=== PATIENT | female | born 1965 | race Caucasian/White ===

== ENCOUNTER 2018-08-25 06:18 | Day surgery (SDC) | payer OTHER ==
[~2018-08-25] VITALS: Ht 154.9 cm; Wt 53.4 kg
[~2018-08-25 06:18] MED LIST: MULT1CAP20 PO
[2018-08-25 06:50] VITALS: Ht 154.9 cm; Wt 53.4 kg
[2018-08-25] MEDS ORDERED: GABA100C14 PO (06:56)
[2018-08-25] MEDS ORDERED: NAPR500T8 PO (06:56)
[2018-08-25 08:05] VITALS: BP 108/59; PULSE 68; RESP 18
[2018-08-25] MEDS ORDERED: MIDAZOLAM 1 MG/ML 2 ML INJ ONE ×2 (08:21)
[2018-08-25] MEDS ORDERED: FENTAnyl 50 MCG/ML VIAL ONE (08:21)
[2018-08-25 08:43] VITALS: BP 103/64; PULSE 57; RESP 18
[2018-08-25 08:44] VITALS: PULSE 60
== END 2018-08-25 10:52 | disposition home or self-care (01) ==
LOC: GIL 06:18
PROVIDERS: ATTEND Internal Medicine Gastroenterology
DX: Z12.11 Encounter for screening for malignant neoplasm of colon (principal); K64.8 Other hemorrhoids; K57.30 Diverticulosis of large intestine without perforation or abscess without bleeding
CPT/HCPCS: 45378; J2250; J3010